=== PATIENT | male | born 1970 | race African-American/Black ===

== ENCOUNTER 2017-06-18 20:44 | Observation (INO) | payer SELFPAY ==
[2017-06-18] MEDS ORDERED: Sodium Chloride 0.9% 2.5 ML Syringe FLUSH PRN ×2 (20:49→22:46)
[2017-06-18] MEDS ORDERED: Sodium Chloride 0.9% 10 ML Syringe FLUSH PRN ×2 (20:49→22:46)
[2017-06-18] MEDS ORDERED: Aspirin 81 MG Tab.Chew PO ONE (20:49)
[2017-06-18] MEDS ORDERED: Famotidine 20 MG/2 ML SDV IVPUSH ONE (20:49)
--- NOTE | 2017-06-18 21:01 | EDM.PDOC ---
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 Swanson] Review of Systems: As per history of present illness and below otherwise all systems reviewed and negative. Past medical history: As per history of present illness and as reviewed below otherwise noncontributory. Surgical history: As per history of present illness and as reviewed below otherwise noncontributory. Social history: No reported history of drug or alcohol abuse. Family history: As per history of present illness and as reviewed below otherwise noncontributory. Physical exam: Alert and oriented gentleman answering questions appropriately he looks nontoxic. Skin is slightly moist, warm. EKG obtained with sinus rhythm HEENT: Atraumatic, normocehpalic, pupils reactive, negative for conjunctival pallor or scleral icterus, mucous membranes moist, throat clear, neck supple, nontender, trachea midline. Lungs: Clear to auscultation, breath sounds equal bilaterally, chest tender on palpation to right upper anterior surface. Heart: S1S2, regular, negative for clicks, rubs, or JVD. Abdomen: Soft, nondistended, rounded, nontender. Negative for masses or hepatossplenmegaly. Negative for costovertebral tenderness. Pelvis: Stable nontender. Genitourinary: Deferred. Rectal: Deferred Extremities: Atraumatic, negative for cords or calf pain. Neurovascular unremarkable. Neuro: Awake, alert, oriented. Cranial nerves II through XII unremarkable. Cerebellum unremarkable. Motor and sensory unremarkable throughout. Exam nonfocal. Discussed diagnosis with patient and he is agreeable to be referred for observation telemetry. Dr. De Guzman called Dr. Carlito Pompa who is agreeable for observation. Diagnostics: [CBC CMP EKG CXR troponin] Therapeutics: [Aspirin, Nitrostat] Impression: [Atypical chest wall pain Chest pain relieved with one Nitrostat] Plan: [observe on telemetry] Definitive disposition and diagnosis as appropriate pending reevaluation and review of above. Onset: Today, Sudden Duration: Hour(s): (Since 4 AM) Quality: Reports: Ache Severity: Moderate chest Pain Score (Numeric/FACES): 8 - Related Data Allergies Allergy/AdvReac Type Severity Reaction Status Date / Time No Known Allergies Allergy Verified 06/18/17 20:46 Home Meds: Home Meds Chlorthalidone 25 mg PO DAILY 06/18/17 [History] ED ROS GENERAL - Review of Systems Review Of Systems: ROS reveals no pertinent complaints other than HPI. ED EXAM, GENERAL - Physical Exam Exam: See Below (see dictation) Course - Vital Signs Last Recorded V/S: Last Vital Signs Temp 36.2 C 06/18/17 20:47 Pulse 97 06/18/17 20:47 Resp 18 06/18/17 20:47 BP 148/89 H 06/18/17 21:10 Pulse Ox 97 06/18/17 20:47 - Orders/Labs/Meds Orders: Active Orders 24 hr Category Date Time Status Cardiac Monitoring [RC] . DIRECTED Care 06/18/17 20:49 Active EKG Documentation Completion [RC] STAT Care 06/18/17 20:49 Active Oxygen Therapy [RC] ASDIRECTED Care 06/18/17 20:49 Active Chest 1V Frontal [CR] Stat Exams 06/18/17 20:49 Taken UA W/MICROSCOPIC [URIN] Stat Lab 06/18/17 21:32 Received Nitroglycerin [Nitrostat] Med 06/18/17 21:05 Active 0.4 mg SL Q5M PRN Sodium Chloride 0.9% [Saline Flush] Med 06/18/17 20:49 Active 10 ml FLUSH ASDIRECTED PRN Sodium Chloride 0.9% [Saline Flush] Med 06/18/17 20:49 Active 2.5 ml FLUSH ASDIRECTED PRN Saline Lock Insert [OM.PC] Stat Oth 06/18/17 20:49 Ordered Medication Orders Nitroglycerin (Nitrostat) 0.4 mg SL Q5M PRN PRN Reason: Chest Pain Last Admin: 06/18/17 21:10 Dose: 0.4 mg Sodium Chloride (Saline Flush) 10 ml FLUSH ASDIRECTED PRN PRN Reason: Keep Vein Open Sodium Chloride (Saline Flush) 2.5 ml FLUSH ASDIRECTED PRN PRN Reason: Keep Vein Open Labs: Laboratory Tests 06/18/17 06/18/17 06/18/17 Range/Units 21:07 21:07 21:07 WBC 9.73 (4.0-11.0) K/uL RBC 5.85 (4.50-5.90) M/uL Hgb 14.3 (13.0-17.0) g/dL Hct 44.2 (38.0-50.0) % MCV 75.6 L (80.0-98.0) fL MCH 24.4 L (27.0-32.0) pg MCHC 32.4 (31.0-37.0) g/dL RDW Std Deviation 40.6 (28.0-62.0) fl RDW Coeff of Mark 15 (11.0-15.0) % Plt Count 219 (150-400) K/uL MPV 9.90 (7.40-12.00) fL Neut % (Auto) 57.0 (48.0-80.0) % Lymph % (Auto) 31.1 (16.0-40.0) % Russell % (Auto) 8.1 (0.0-15.0) % Eos % (Auto) 3.6 (0.0-7.0) % Baso % (Auto) 0.2 (0.0-1.5) % Neut # (Auto) 5.5 (1.4-5.7) K/uL Lymph # (Auto) 3.0 H (0.6-2.4) K/uL Russell # (Auto) 0.8 (0.0-0.8) K/uL Eos # (Auto) 0.4 (0.0-0.7) K/uL Baso # (Auto) 0.0 (0.0-0.1) K/uL Nucleated RBC % 0.0 /100WBC Nucleated RBCs # 0 K/uL INR 1.02 (0.86-1.11) Sodium 139 (136-146) mmol/L Potassium 4.0 (3.5-5.1) mmol/L Chloride 105 (98-110) mmol/L Carbon Dioxide 23 (21-31) mmol/L BUN 18 (6.0-23.0) mg/dL Creatinine 1.2 (0.6-1.5) mg/dL Est Cr Clr Drug Dosing 74.42 mL/min Estimated GFR (MDRD) > 60.0 ml/min Glucose 107 (60-110) mg/dL Calcium 9.4 (8.8-10.8) mg/dL Total Bilirubin 0.2 (0.1-1.5) mg/dL AST 25 (5-40) IU/L ALT 28 (8-54) IU/L Alkaline Phosphatase 82 (40-150) Troponin I (0.0-0.29) NG/ML Total Protein 8.1 H (6.0-8.0) g/dL Albumin 4.1 (3.5-5.0) g/dL Globulin 4.0 H (2.0-3.5) g/dL Albumin/Globulin Ratio 1.0 L (1.3-2.8) Amylase 62 (10-90) U/L Lipase 20 (7-80) U/L / Range/Units 21:07 WBC (4.0-11.0) K/uL RBC (4.50-5.90) M/uL Hgb (13.0-17.0) g/dL Hct (38.0-50.0) % MCV (80.0-98.0) fL MCH (27.0-32.0) pg MCHC (31.0-37.0) g/dL RDW Std Deviation (28.0-62.0) fl RDW Coeff of Mark (11.0-15.0) % Plt Count (150-400) K/uL MPV (7.40-12.00) fL Neut % (Auto) (48.0-80.0) % Lymph % (Auto) (16.0-40.0) % Russell % (Auto) (0.0-15.0) % Eos % (Auto) (0.0-7.0) % Baso % (Auto) (0.0-1.5) % Neut # (Auto) (1.4-5.7) K/uL Lymph # (Auto) (0.6-2.4) K/uL Russell # (Auto) (0.0-0.8) K/uL Eos # (Auto) (0.0-0.7) K/uL Baso # (Auto) (0.0-0.1) K/uL Nucleated RBC % /100WBC Nucleated RBCs # K/uL INR (0.86-1.11) Sodium (136-146) mmol/L Potassium (3.5-5.1) mmol/L Chloride (98-110) mmol/L Carbon Dioxide (21-31) mmol/L BUN (6.0-23.0) mg/dL Creatinine (0.6-1.5) mg/dL Est Cr Clr Drug Dosing mL/min Estimated GFR (MDRD) ml/min Glucose (60-110) mg/dL Calcium (8.8-10.8) mg/dL Total Bilirubin (0.1-1.5) mg/dL AST (5-40) IU/L ALT (8-54) IU/L Alkaline Phosphatase (40-150) Troponin I < 0.10 (0.0-0.29) NG/ML Total Protein (6.0-8.0) g/dL Albumin (3.5-5.0) g/dL Globulin (2.0-3.5) g/dL Albumin/Globulin Ratio (1.3-2.8) Amylase (10-90) U/L Lipase (7-80) U/L Meds: Medications Generic Name Dose Route Start Last Admin Trade Name Freq PRN Reason Stop Dose Admin Nitroglycerin 0.4 mg 06/18/17 21:05 06/18/17 21:10 Nitrostat SL 0.4 mg Q5M PRN Administration Chest Pain Sodium Chloride 10 ml 06/18/17 20:49 Saline Flush FLUSH ASDIRECTED PRN Keep Vein Open Sodium Chloride 2.5 ml 06/18/17 20:49 Saline Flush FLUSH ASDIRECTED PRN Keep Vein Open Discontinued Medications Generic Name Dose Route Start Last Admin Trade Name Freq PRN Reason Stop Dose Admin Aspirin 324 mg 06/18/17 20:49 06/18/17 20:57 Aspirin PO 06/18/17 20:50 324 mg ONETIME ONE Administration Famotidine 20 mg 06/18/17 20:49 06/18/17 20:58 Pepcid IVPUSH 06/18/17 20:50 20 mg ONETIME ONE Administration Nitroglycerin 1 gm 06/18/17 21:21 06/18/17 21:26 Nitro-Bid 2% TOP 06/18/17 21:22 1 gm ONETIME ONE Administration Departure - Departure Time of Disposition: 21:53 Disposition: Refer to Observation Condition: Good Clinical Impression: Chest pain Qualifiers: Chest pain type: other chest pain Qualified Code(s): R07.89 - Other chest pain ; R07.8 - Other chest pain Forms: ED Department Discharge - My Orders Last 24 Hours: My Active Orders 06/18/17 20:49 Cardiac Monitoring [RC] . DIRECTED EKG Documentation Completion [RC] STAT Oxygen Therapy [RC] ASDIRECTED Chest 1V Frontal [CR] Stat Sodium Chloride 0.9% [Saline Flush] 10 ml FLUSH ASDIRECTED PRN Sodium Chloride 0.9% [Saline Flush] 2.5 ml FLUSH ASDIRECTED PRN Saline Lock Insert [OM.PC] Stat 06/18/17 21:05 Nitroglycerin [Nitrostat] 0.4 mg SL Q5M PRN 06/18/17 21:32 UA W/MICROSCOPIC [URIN] Stat - Assessment/Plan Last 24 Hours: My Active Orders 06/18/17 20:49 Cardiac Monitoring [RC] . DIRECTED EKG Documentation Completion [RC] STAT Oxygen Therapy [RC] ASDIRECTED Chest 1V Frontal [CR] Stat Sodium Chloride 0.9% [Saline Flush] 10 ml FLUSH ASDIRECTED PRN Sodium Chloride 0.9% [Saline Flush] 2.5 ml FLUSH ASDIRECTED PRN Saline Lock Insert [OM.PC] Stat 06/18/17 21:05 Nitroglycerin [Nitrostat] 0.4 mg SL Q5M PRN 06/18/17 21:32 UA W/MICROSCOPIC [URIN] Stat
[2017-06-18] MEDS ORDERED: Nitroglycerin 0.4 MG Tab.SL SL PRN (21:05)
[2017-06-18] MEDS ORDERED: Nitroglycerin 2% Oint 1 GM UD Packet TOP ONE (21:21)
[2017-06-18] MEDS ORDERED: Cefdinir 300 MG Cap PO ONE (21:23)
[2017-06-18 21:45] LABS: CHLORIDE,CL 105 mmol/L (98-110); SODIUM,NA 139 mmol/L (136-146)
[2017-06-19] MEDS: Nitroglycerin 2% Oint 1 GM UD Packet TOP SCH ×2 (00:08→05:43)
[2017-06-19] MEDS ORDERED: Acetaminophen 500 MG Tab PO PRN (04:52)
[2017-06-19] MEDS ORDERED: Acetaminophen 500 MG Tab ONE (05:20)
[2017-06-19] MEDS ORDERED: Chlorthalidone 25 MG Tab PO SCH (09:00)
[2017-06-19] MEDS ORDERED: Aspirin 81 MG Tab.Chew PO SCH (09:00)
[2017-06-19 09:19] VITALS: BP 116/56
--- NOTE | 2017-06-19 10:16 | PCM.HP ---
H&P History of Present Illness - General Date of Service: 06/19/17 Admit Problem/Dx: Admission Diagnosis/Problem Admission Diagnosis/Problem Chest pain Source of Information: Patient History Limitations: Reports: No Limitations - History of Present Illness Initial Comments - Free Text/Narative: This 47 year old male with pmh HTN presented to the ED last evening with concerns of chest pressure. He reports around 4 am 06/18 he woke up from sleep and was having some R hand pain, he recent fractured this. He felt like he slept on it wrong. He tried falling asleep again and the pain worsened and moved up his R arm to the center of his chest. He then felt a pitching like pain to his chest. He went to work and then decided he should be evaluated last night. He reported feeling like he couldn't take a deep breath due to the pain, no diaphoresis, or palpitations. He reports he had a CVA in the past with some chest pain, but they felt it was due to stress. He doesn't follow with anyone regarding this and only takes Chlorthalidone for HTN. He reports his maternal medical history is scarce because they just didn't go to the doctor and his paternal side he reports heart disease, his father and grandfather both had MIs in their 60-70s and have since . He smokes socially, does not chew, no alcohol use and no recreational drug use. In the ED labwork WNL, EKG SR. Troponin negative and CXR negative. He had some relief with nitropaste. Bilateral Head Pain Score (Numeric/FACES): 8 chest Pain Score (Numeric/FACES): 8 - Related Data Allergies/Adverse Reactions: Allergies Allergy/AdvReac Type Severity Reaction Status Date / Time No Known Allergies Allergy Verified 06/18/17 20:46 Home Medications: Home Meds Chlorthalidone 25 mg PO DAILY 06/18/17 [History] Acetaminophen [Tylenol Extra Strength] 500 mg PO Q4H PRN tablet 06/19/17 [Rx] Aspirin 81 mg PO DAILY #30 tab.chew 06/19/17 [Rx] Past Medical History HEENT History: Reports: None Cardiovascular History: Reports: Hypertension. Denies: Blood Clots/VTE/DVT, CA Respiratory History: Reports: None. Denies: COPD, PE Gastrointestinal History: Reports: None. Denies: GERD, GI Bleed Genitourinary History: Reports: None Musculoskeletal History: Reports: Other (See Below) Other Musculoskeletal History: Broken hand Neurological History: Reports: CVA Other Neuro History: CVA 1 year ago per pt (April 2016) Psychiatric History: Reports: None Endocrine/Metabolic History: Reports: None Hematologic History: Reports: None Dermatologic History: Reports: None - Infectious Disease History Infectious Disease History: Reports: None Social & Family History - Family History Family Medical History: Noncontributory - Tobacco Use Smoking Status *Q: Current Some Day Smoker Years of Tobacco use: 25 Packs/Tins Daily: 1 Used Tobacco, but Quit: No Second Hand Smoke Exposure: Yes - Caffeine Use Caffeine Use: Reports: None - Alcohol Use Days Per Week of Alcohol Use: 1 Number of Drinks Per Day: 3 Total Drinks Per Week: 3 - Recreational Drug Use Recreational Drug Use: No H&P Review of Systems - Review of Systems: Review Of Systems: See Below General: Reports: No Symptoms. Denies: Fever, Chills, Malaise HEENT: Reports: No Symptoms Pulmonary: Reports: No Symptoms. Denies: Shortness of Breath, Cough, Sputum Cardiovascular: Reports: No Symptoms. Denies: Chest Pain, Dyspnea on Exertion, Edema Gastrointestinal: Reports: No Symptoms, Flatus. Denies: Abdominal Pain, Black Stool, Bloody Stool, Nausea, Vomiting Genitourinary: Reports: No Symptoms. Denies: Dysuria, Frequency, Burning Musculoskeletal: Reports: Hand Pain (R hand) Psychiatric: Reports: No Symptoms Neurological: Reports: No Symptoms Hematologic/Lymphatic: Reports: No Symptoms Immunologic: Reports: No Symptoms Exam - Exam Exam: See Below - Vital Signs Vital Signs: Last Vital Signs Temp 97.8 F 06/19/17 08:30 Pulse 73 06/19/17 08:30 Resp 18 06/19/17 08:30 BP 116/56 L 06/19/17 08:30 Pulse Ox 98 06/19/17 08:30 Weight: 141.1 kg - Exam General: Alert, Oriented, Cooperative HEENT: PERRLA, Hearing Intact, Mucosa Moist & [place], Nares Patent, Normal Nasal Septum, Posterior Pharynx Clear, Conjunctiva Clear, EOMI, EACs Clear, TMs Clear Lungs: Clear to Auscultation, Normal Respiratory Effort Cardiovascular: Regular Rate, Regular Rhythm GI/Abdominal Exam: Normal Bowel Sounds, Soft, Non-Tender, No Organomegaly, No Distention, No Abnormal Bruit, No Mass, Pelvis Stable, Other (obsese abdomen) Extremities: Normal Inspection, Normal Range of Motion, Non-Tender, No Pedal Edema, Normal Capillary Refill Neuro Extensive - Mental Status: Alert, Oriented x3, Normal Mood/Affect, Normal Cognition Psychiatric: Alert, Normal Affect, Normal Mood - Patient Data Lab Results Last 24 hrs: Laboratory Results - last 24 hr 06/19/17 06/19/17 06/19/17 Range/Units 03:04 08:59 08:59 Troponin I < 0.10 < 0.10 (0.0-0.29) NG/ML Triglycerides 133 (10-190) mg/dL Cholesterol 138 (131-240) mg/dL LDL Cholesterol, Calc 70 (60-180) mg/dL VLDL Cholesterol 27 (5-55) mg/dL HDL Cholesterol 41 (40-80) mg/dL Cholesterol/HDL Ratio 3.4 (3.3-6.0) Result Diagrams: 06/18/17 21:07 06/18/17 21:07 *Q Meaningful Use (ADM) - VTE *Q VTE Criteria *Q: - Stroke *Q Stroke Criteria *Q: - AMI *Q AMI Criteria *Q: - Problem List (1) HTN (hypertension) SNOMED Code(s): 27947022 ICD Code: I10 - ESSENTIAL (PRIMARY) HYPERTENSION Status: Acute Qualifiers: Hypertension type: essential hypertension Qualified Code(s): I10 - Essential (primary) hypertension (2) Chest pain SNOMED Code(s): 04921537 ICD Code: R07.9 - CHEST PAIN, UNSPECIFIED Status: Acute Qualifiers: Chest pain type: other chest pain Qualified Code(s): R07.89 - Other chest pain; R07.8 - Other chest pain Problem List Initiated/Reviewed/Updated: Yes Orders Last 24hrs: Active Orders 24 hr Category Date Time Status Communication Order [RC] ROUTINE Care 06/18/17 22:43 Active Ready for Discharge [RC] PER UNIT ROUTINE Care 06/19/17 10:15 Ordered Telemetry Monitoring [Cardiac Monitoring] [RC] . Care 06/19/17 08:22 Active DIRECTED Cardiac [Heart Healthy Diet] [DIET] Diet 06/19/17 Breakfast Active Acetaminophen [Tylenol Extra Strength] Med 06/19/17 04:52 Active 500 mg PO Q4H PRN Aspirin Med 06/19/17 09:00 Active 81 mg PO DAILY Chlorthalidone Med 06/19/17 09:00 Active 25 mg PO DAILY Sodium Chloride 0.9% [Saline Flush] Med 06/18/17 22:46 Active 10 ml FLUSH ASDIRECTED PRN Sodium Chloride 0.9% [Saline Flush] Med 06/18/17 22:46 Active 2.5 ml FLUSH ASDIRECTED PRN Convert IV to Saline Lock [OM.PC] Routine Oth 06/18/17 22:46 Ordered Resuscitation Status Routine Resus Stat 06/19/17 08:24 Ordered Medication Orders Acetaminophen (Tylenol Extra Strength) 500 mg PO Q4H PRN PRN Reason: Pain Aspirin (Aspirin) 81 mg PO DAILY [facility] Last Admin: 06/19/17 08:07 Dose: 81 mg Chlorthalidone (Chlorthalidone) 25 mg PO DAILY [facility] Last Admin: 06/19/17 08:07 Dose: 25 mg Nitroglycerin (Nitrostat) 0.4 mg SL Q5M PRN PRN Reason: Chest Pain Last Admin: 06/18/17 21:10 Dose: 0.4 mg Sodium Chloride (Saline Flush) 10 ml FLUSH ASDIRECTED PRN PRN Reason: Keep Vein Open Sodium Chloride (Saline Flush) 2.5 ml FLUSH ASDIRECTED PRN PRN Reason: Keep Vein Open Assessment/Plan Comment:: Discharge Diagnoses Atypical chest pain-resolved HTN Obesity Harish was admitted and monitored overnight. Troponins remained negative and EKG did now show any ST segment changes. He is pain free this morning, besides headache from Nitro paste. Paste was removed. Lipid panel good. BS good. ACS ruled out. He will be discharged today, I encouraged him to follow up with Dr. Swanson as planned for R hand fracture. He will also be encouraged to have stress test, order written. He is to remain light duty until this and to follow up with PCP in 1 week. He is to return to ED or clinic if concerns should arise.
--- NOTE | 2017-06-19 12:01 | CR ---
EXAM DATE: 06/18/17 PATIENT'S AGE: 47 Patient: DENZEL COLINDRES Facility: [place], [place] Site . Site : [id number] Study: XRay Chest [id number]/[id number] 8:56:10 PM Ordering Physician: Doctor Everett Final Report: INDICATION: Chest pain. Comparison: None. Technique: Portable AP chest. Findings: Normal size cardiac silhouette. Clear lung brink without evidence of acute pneumonic infiltrates or CHF. No pneumothorax or pleural effusion. Impression: Negative portable AP chest. Dictated by Kaci Ibarra MD @ Jun 18 2017 8:59PM (Electronic Signature) Report Signed by Proxy. DANIA
== END 2017-06-19 10:55 | disposition home or self-care (01) ==
LOC: MW.ED 20:44 → MW.MS 21:56
PROVIDERS: ADMIT Family Medicine; ATTEND Family Medicine
DX: R07.89 Other chest pain (principal); I10 Essential (primary) hypertension; E66.9 Obesity, unspecified; Z86.73 Personal history of transient ischemic attack (TIA), and cerebral infarction without residual deficits; F17.210 Nicotine dependence, cigarettes, uncomplicated; Z79.82 Long term (current) use of aspirin; Z79.899 Other long term (current) drug therapy
CPT/HCPCS: 36415; 71010; 80053; 80061; 81001; 82150; 83690; 84484; 85025; 85610; 93005; 96374; 99285; A9270; 99283; G0378

== ENCOUNTER 2017-07-27 22:32 | Emergency (ER) | payer SELFPAY ==
--- NOTE | 2017-07-27 22:46 | EDM.PDOC ---
ED HPI GENERAL MEDICAL PROBLEM - General Chief Complaint: Lower Extremity Injury/Pain Stated Complaint: RT FOOT SOLLOWEN Time Seen by Provider: 07/28/17 00:05 - History of Present Illness INITIAL COMMENTS - FREE TEXT/NARRATIVE: HISTORY AND PHYSICAL: History of present illness: Patient 47-year-old black male patient of hypertension was been admitted hospital for chest pain and workup including thallium stress was unremarkable comes in now with peripheral edema and discomfort to his right foot he states this started today states he has had a swarm before but denies prior pain he denies gouty arthritis denies trauma denies fever chills nausea vomiting chest pain breath or other concern Review of systems: As per history of present illness and below otherwise all systems reviewed and negative. Past medical history: As per history of present illness and as reviewed below otherwise noncontributory. Surgical history: As per history of present illness and as reviewed below otherwise noncontributory. Social history: No reported history of drug or alcohol abuse. Family history: As per history of present illness and as reviewed below otherwise noncontributory. Physical exam: HEENT: Atraumatic, normocephalic, pupils reactive, negative for conjunctival pallor or scleral icterus, mucous membranes moist, throat clear, neck supple, nontender, trachea midline. Lungs: Clear to auscultation, breath sounds equal bilaterally, chest nontender. Heart: S1S2, regular, negative for clicks, rubs, or JVD. Abdomen: Soft, nondistended, nontender. Negative for masses or hepatosplenomegaly. Negative for costovertebral tenderness. Pelvis: Stable nontender. Genitourinary: Deferred. Rectal: Deferred. Extremities: 2+ edema noted in his inferior extremities peripherally right foot has no localized tenderness no crepitation Kyle neurovascular exam are unremarkable Neuro: Awake, alert, oriented. Cranial nerves II through XII unremarkable. Cerebellum unremarkable. Motor and sensory unremarkable throughout. Exam nonfocal. Diagnostics: CBC CMP and uric acid BMP UDS chest x-ray EKG x-ray right foot/ankle Therapeutics: None Impression: #1 peripheral edema #2 history of hypertension #3 right foot/ankle pain Definitive disposition and diagnosis as appropriate pending reevaluation and review of above. - Related Data Allergies Allergy/AdvReac Type Severity Reaction Status Date / Time No Known Allergies Allergy Verified 06/18/17 20:46 Home Meds: Home Meds Chlorthalidone 25 mg PO DAILY 06/18/17 [History] Aspirin 81 mg PO DAILY #30 tab.chew 06/19/17 [Rx] Past Medical History HEENT History: Reports: None Cardiovascular History: Reports: Hypertension. Denies: Blood Clots/VTE/DVT, SC Respiratory History: Reports: None. Denies: COPD, PE Gastrointestinal History: Reports: None. Denies: GERD, GI Bleed Genitourinary History: Reports: None Musculoskeletal History: Reports: Other (See Below) Other Musculoskeletal History: Broken hand Neurological History: Reports: CVA Other Neuro History: CVA 1 year ago per pt (April 2016) Psychiatric History: Reports: None Endocrine/Metabolic History: Reports: None Hematologic History: Reports: None Dermatologic History: Reports: None - Infectious Disease History Infectious Disease History: Reports: None Social & Family History - Family History Family Medical History: Noncontributory - Tobacco Use Smoking Status *Q: Current Some Day Smoker Years of Tobacco use: 25 Packs/Tins Daily: 1 Used Tobacco, but Quit: No Second Hand Smoke Exposure: Yes - Caffeine Use Caffeine Use: Reports: None - Alcohol Use Days Per Week of Alcohol Use: 1 Number of Drinks Per Day: 3 Total Drinks Per Week: 3 - Recreational Drug Use Recreational Drug Use: No ED ROS GENERAL - Review of Systems Review Of Systems: ROS reveals no pertinent complaints other than HPI. ED EXAM, GENERAL - Physical Exam Exam: See Below (See dictation) Course - Vital Signs Last Recorded V/S: Last Vital Signs Temp 36.6 C 07/27/17 22:32 Pulse 75 07/27/17 22:32 Resp 20 07/27/17 22:32 BP 136/88 07/27/17 22:32 Pulse Ox 96 07/27/17 22:32 - Orders/Labs/Meds Orders: Active Orders 24 hr Category Date Time Status EKG Documentation Completion [RC] STAT Care 07/27/17 22:46 Active Ankle Min 3V Rt [CR] Stat Exams 07/27/17 22:34 Taken Chest 1V Frontal [CR] Stat Exams 07/27/17 22:46 Taken Foot Comp Min 3V Rt [CR] Stat Exams 07/27/17 22:33 Taken Labs: Laboratory Tests 07/27/17 07/27/17 07/27/17 Range/Units 21:57 21:57 21:57 WBC 9.92 (4.0-11.0) K/uL RBC 5.43 (4.50-5.90) M/uL Hgb 13.2 (13.0-17.0) g/dL Hct 41.1 (38.0-50.0) % MCV 75.7 L (80.0-98.0) fL MCH 24.3 L (27.0-32.0) pg MCHC 32.1 (31.0-37.0) g/dL RDW Std Deviation 41.0 (28.0-62.0) fl RDW Coeff of Mark 15 (11.0-15.0) % Plt Count 223 (150-400) K/uL MPV 9.40 (7.40-12.00) fL Neut % (Auto) 56.3 (48.0-80.0) % Lymph % (Auto) 29.5 (16.0-40.0) % [place] % (Auto) 10.4 (0.0-15.0) % Eos % (Auto) 3.6 (0.0-7.0) % Baso % (Auto) 0.2 (0.0-1.5) % Neut # (Auto) 5.6 (1.4-5.7) K/uL Lymph # (Auto) 2.9 H (0.6-2.4) K/uL Fill[place] # (Auto) 1.0 H (0.0-0.8) K/uL Eos # (Auto) 0.4 (0.0-0.7) K/uL Baso # (Auto) 0.0 (0.0-0.1) K/uL Nucleated RBC % 0.0 /100WBC Nucleated RBCs # 0 K/uL Sodium 140 (136-146) mmol/L Potassium 3.4 L (3.5-5.1) mmol/L Chloride 103 (98-110) mmol/L Carbon Dioxide 28 (21-31) mmol/L BUN 12 (6.0-23.0) mg/dL Creatinine 0.8 (0.6-1.5) mg/dL Est Cr Clr Drug Dosing 111.63 mL/min Estimated GFR (MDRD) > 60.0 ml/min Glucose 119 H (60-110) mg/dL Uric Acid 9.5 H (2.1-7.4) mg/dL Calcium 9.4 (8.8-10.8) mg/dL Total Bilirubin 0.3 (0.1-1.5) mg/dL AST 24 (5-40) IU/L ALT 30 (8-54) IU/L Alkaline Phosphatase 79 (40-150) B-Natriuretic Peptide < 15 (<100) PG/ML Total Protein 7.8 (6.0-8.0) g/dL Albumin 4.0 (3.5-5.0) g/dL Globulin 3.8 H (2.0-3.5) g/dL Albumin/Globulin Ratio 1.1 L (1.3-2.8) Urine Opiates Screen (NEGATIVE) Ur Oxycodone Screen (NEGATIVE) Urine Methadone Screen (NEGATIVE) Ur Barbiturates Screen (NEGATIVE) Ur Phencyclidine Scrn (NEGATIVE) Ur Amphetamine Screen (NEGATIVE) U Methamphetamines Scrn (NEGATIVE) U Benzodiazepines Scrn (NEGATIVE) U Cocaine Metab Screen (NEGATIVE) U Marijuana (THC) Screen (NEGATIVE) 07/27/17 Range/Units 23:30 WBC (4.0-11.0) K/uL RBC (4.50-5.90) M/uL Hgb (13.0-17.0) g/dL Hct (38.0-50.0) % MCV (80.0-98.0) fL MCH (27.0-32.0) pg MCHC (31.0-37.0) g/dL RDW Std Deviation (28.0-62.0) fl RDW Coeff of Mark (11.0-15.0) % Plt Count (150-400) K/uL MPV (7.40-12.00) fL Neut % (Auto) (48.0-80.0) % Lymph % (Auto) (16.0-40.0) % [place] % (Auto) (0.0-15.0) % Eos % (Auto) (0.0-7.0) % Baso % (Auto) (0.0-1.5) % Neut # (Auto) (1.4-5.7) K/uL Lymph # (Auto) (0.6-2.4) K/uL Fill[place] # (Auto) (0.0-0.8) K/uL Eos # (Auto) (0.0-0.7) K/uL Baso # (Auto) (0.0-0.1) K/uL Nucleated RBC % /100WBC Nucleated RBCs # K/uL Sodium (136-146) mmol/L Potassium (3.5-5.1) mmol/L Chloride (98-110) mmol/L Carbon Dioxide (21-31) mmol/L BUN (6.0-23.0) mg/dL Creatinine (0.6-1.5) mg/dL Est Cr Clr Drug Dosing mL/min Estimated GFR (MDRD) ml/min Glucose (60-110) mg/dL Uric Acid (2.1-7.4) mg/dL Calcium (8.8-10.8) mg/dL Total Bilirubin (0.1-1.5) mg/dL AST (5-40) IU/L ALT (8-54) IU/L Alkaline Phosphatase (40-150) B-Natriuretic Peptide (<100) PG/ML Total Protein (6.0-8.0) g/dL Albumin (3.5-5.0) g/dL Globulin (2.0-3.5) g/dL Albumin/Globulin Ratio (1.3-2.8) Urine Opiates Screen NEGATIVE (NEGATIVE) Ur Oxycodone Screen NEGATIVE (NEGATIVE) Urine Methadone Screen NEGATIVE (NEGATIVE) Ur Barbiturates Screen NEGATIVE (NEGATIVE) Ur Phencyclidine Scrn NEGATIVE (NEGATIVE) Ur Amphetamine Screen NEGATIVE (NEGATIVE) U Methamphetamines Scrn NEGATIVE (NEGATIVE) U Benzodiazepines Scrn NEGATIVE (NEGATIVE) U Cocaine Metab Screen NEGATIVE (NEGATIVE) U Marijuana (THC) Screen NEGATIVE (NEGATIVE) Departure - Departure Time of Disposition: 00:05 Disposition: Home, Self-Care 01 Condition: Good Clinical Impression: Gout - Discharge Information Referrals: PCP,None [Primary Care Provider] - Forms: ED Department Discharge Additional Instructions: The following information is given to patients seen in the emergency department who are being discharged to home. This information is to outline your options for follow-up care. We provide all patients seen in our emergency department with a follow-up referral. The need for follow-up, as well as the timing and circumstances, are variable depending upon the specifics of your emergency department visit. If you don't have a primary care physician on staff, we will provide you with a referral. We always advise you to contact your personal physician following an emergency department visit to inform them of the circumstance of the visit and for follow-up with them and/or the need for any referrals to a consulting specialist. The emergency department will also refer you to a specialist when appropriate. This referral assures that you have the opportunity for followup care with a specialist. All of these measure are taken in an effort to provide you with optimal care, which includes your followup. Under all circumstances we always encourage you to contact your private physician who remains a resource for coordinating your care. When calling for followup care, please make the office aware that this follow-up is from your recent emergency room visit. If for any reason you are refused follow-up, please contact the [facility] emergency department at and asked to speak to the emergency department charge nurse. Indocin as prescribed follow-up primary medical doctor 1-2 days return as needed as discussed - My Orders Last 24 Hours: My Active Orders 07/27/17 22:33 Foot Comp Min 3V Rt [CR] Stat 07/27/17 22:34 Ankle Min 3V Rt [CR] Stat 07/27/17 22:46 EKG Documentation Completion [RC] STAT Chest 1V Frontal [CR] Stat - Assessment/Plan Last 24 Hours: My Active Orders 07/27/17 22:33 Foot Comp Min 3V Rt [CR] Stat 07/27/17 22:34 Ankle Min 3V Rt [CR] Stat 07/27/17 22:46 EKG Documentation Completion [RC] STAT Chest 1V Frontal [CR] Stat
[2017-07-27 23:27] LABS: CHLORIDE,CL 103 mmol/L (98-110); SODIUM,NA 140 mmol/L (136-146)
[2017-07-28 00:13] VITALS: BP 131/78
[2017-07-28] MEDS ORDERED: Acetaminophen/HYDROcodone 325-10 MG Tab PO ONE (00:13)
--- NOTE | 2017-07-28 10:17 | CR ---
EXAM DATE: 07/27/17 PATIENT'S AGE: 47 Patient: DENZEL COLINDRES Facility: [place], [place] Site . Site : 1970 Study: XRay Extremity foot [id number]/23/2017 11:01:39 PM Ordering Physician: Doctor Everett Final Report: INDICATION: Foot pain and swelling, no injury TECHNIQUE: Foot radiograph 3 views right COMPARISON: None FINDINGS: Bones: Alignment is normal. No acute fractures or aggressive bone lesions identified. Joint spaces: Unremarkable. No ankle effusion is seen. Soft tissues: Mild diffuse subcutaneous edema noted. Kager`s fat pad is normal in appearance. The visualized Achilles` tendon is unremarkable. No radiopaque foreign bodies are seen. IMPRESSION: 1. No acute osseous injuries are noted. Dictated by: Lobito Dougherty MD @ 07/27/2017 23:04:53 (Electronic Signature) Report Signed by Proxy. DANIA
--- NOTE | 2017-07-28 10:19 | CR ---
EXAM DATE: 07/27/17 PATIENT'S AGE: 47 Patient: DENZEL COLINDRES Facility: [place], [place] Site . Site : 1970 Study: XRay Chest [id number]/23/2017 11:02:50 PM Ordering Physician: Gab Hernandez Final Report: INDICATION: swollen foot TECHNIQUE: Chest 1 view COMPARISON: June 18, 2017 FINDINGS: Cardiovascular and mediastinum: Heart size and vasculature are normal in caliber and appearance. Mediastinum is within normal limits. Lungs and pleural space: No focal consolidation. No sign of pleural effusion. No pneumothorax. Bones and soft tissues: No significant findings. IMPRESSION: No acute cardiopulmonary disease. Dictated by Bowen Conrad MD @ 07/27/2017 11:05:20 PM Dictated by: Bowen Conrad MD @ 07/27/2017 23:05:29 (Electronic Signature) Report Signed by Proxy. [facility]
--- NOTE | 2017-07-28 10:19 | CR ---
EXAM DATE: 07/27/17 PATIENT'S AGE: 47 Patient: DENZEL COLINDRES Facility: [place], [place] Site . Site : 1970 Study: XRay Extremity ankle [id number]/23/2017 11:02:03 PM Ordering Physician: Doctor Evertet Final Report: INDICATION: Ankle pain and swelling, no injury TECHNIQUE: Ankle radiograph 3 views right COMPARISON: None FINDINGS: Bones: Alignment is normal. No acute fractures or aggressive bone lesions identified. Joint spaces: Unremarkable. No ankle joint effusion is seen. Soft tissues: Mild diffuse subcutaneous edema noted. No radiopaque foreign bodies are seen. IMPRESSION: 1. No acute osseous injuries are noted. Dictated by: Lobito Dougherty MD @ 07/27/2017 23:05:54 (Electronic Signature) Report Signed by Proxy. [facility]
== END 2017-07-28 00:32 | disposition home or self-care (01) ==
LOC: MW.ED 22:32
DX: M10.9 Gout, unspecified (principal); F17.210 Nicotine dependence, cigarettes, uncomplicated; Z79.82 Long term (current) use of aspirin
CPT/HCPCS: 36415; 71010; 73610; 73630; 80053; 80305; 83880; 84550; 85025; 93005; 99284; A9270; 99283